=== PATIENT | female | born 1950 | race Caucasian/White ===

== ENCOUNTER 2019-03-22 08:57 | Day surgery (SDC) | payer MEDICARE, OTHER ==
[2019-03-22] MEDS ORDERED: Sodium Chloride 0.9% 10 ML Syringe FLUSH PRN (09:00)
[2019-03-22] MEDS ORDERED: Sodium Chloride 0.9% 1,000 ML IV SCH (09:00)
[2019-03-22] MEDS ORDERED: Metoclopramide 10 MG/2 ML SDV IV PRN (10:00)
[2019-03-22] MEDS ORDERED: Glycopyrrolate 0.2 MG/ML 2 ML SDV ONE (13:30)
[2019-03-22] MEDS ORDERED: Propofol 1,000 MG/100 ML SDV ONE (13:30)
[2019-03-22] MEDS ORDERED: Midazolam 1 MG/ML 2 ML SDV ONE (13:30)
[2019-03-22] MEDS ORDERED: Benzocaine/Butamben/Tetracaine Top Spray 56 GM Canister ONE (13:30)
[2019-03-22 15:55] VITALS: BP 114/62; PULSE 98
--- NOTE | 2019-03-22 19:33 | OR ---
DATE OF OPERATION: 03/22/2019 SURGEON: Bryan Mead MD PREOPERATIVE DIAGNOSIS: Surveillance colonoscopy, shortness of breath, and history of hiatal hernia. POSTOPERATIVE DIAGNOSIS: Surveillance colonoscopy, shortness of breath, and history of hiatal hernia. PROCEDURE: Colonoscopy and esophagogastroduodenoscopy. ANESTHESIA: General. ESTIMATED BLOOD LOSS: None. COMPLICATIONS: None. INDICATION FOR THE PROCEDURE: Patient is a 68-year-old female who last had a colonoscopy 5 years ago. She did have 1 or 2 polyps 10 years ago, normal colonoscopy 5 years ago. She is here today for surveillance colonoscopy. The patient also had EGD 3 years ago showing a hiatal hernia. She has been complaining of shortness of breath and cardiac workup has so far been negative. She is concerned that this may be contributing to her shortness of breath as well. DESCRIPTION OF PROCEDURE: Informed consent was obtained from the patient. The patient was taken to the operating room and placed on the table in the left lateral decubitus position. Monitored anesthesia care was administered. Esophagogastroscope then advanced through the oral cavity and directed toward the duodenum. Duodenum was reached and appeared to be normal. Gastric antrum was normal. Remainder of the gastric body was normal. Retroflexion performed showing a hiatal hernia. The scope then withdrawn within the hiatal hernia. No inflammation, but did have a hernia that measured approximately 7 cm. Scope then withdrawn throughout the esophagus, which was also otherwise unremarkable. The scope then withdrawn. We then turned our attention to the colon. Digital rectal exam performed and was normal. Colonoscope then advanced through the anus directed toward the cecum. Cecum was reached and identified by appendiceal orifice and ileocecal valve. Colonoscope then slowly withdrawn. She did have a few small diverticula in the sigmoid and descending colon, otherwise unremarkable. No polyps identified. The rectum was also unremarkable. Colonoscope then fully withdrawn. FINDINGS: 7 cm hiatal hernia and sigmoid and descending diverticula. RECOMMENDATIONS: Would recommend repeat colonoscopy in 10 years for screening purposes. She does have a decent size hiatal hernia, however, unlikely that this is affecting her shortness of breath. I would recommend a chest x-ray or CT scan just to verify no additional colon or small bowel or other organs within the chest cavity itself. CANDELARIA/STU /[id number]
== END 2019-03-22 15:57 | disposition home or self-care (01) ==
LOC: LB.SDS 08:57
PROVIDERS: ATTEND Surgery
DX: Z12.11 Encounter for screening for malignant neoplasm of colon (principal); K21.9 Gastro-esophageal reflux disease without esophagitis; K44.9 Diaphragmatic hernia without obstruction or gangrene; Z86.010 Personal history of colon polyps; K57.30 Diverticulosis of large intestine without perforation or abscess without bleeding
CPT/HCPCS: 43235; G0105; J2250; J2704; J3490; J7030; 43246; G0121

== ENCOUNTER 2023-07-25 10:52 | Emergency (ER) | payer MEDICARE ==
[2023-07-25 11:15] VITALS: BP 149/85; PULSE 96
[2023-07-25 11:34] LABS: BASOPHILS PERCENT AUTO 1.7 % (0.0-0.5); EOSINOPHILS ABSOLUTE AUTO 0.17 K/uL (0.04-0.40); HEMATOCRIT 31.7 % (37.0-47.0); HEMOGLOBIN 10.9 g/dL (11.5-16.5); LYMPHOCYTES PERCENT AUTO 20.9 % (20.0-40.0); MEAN CORPUSCULAR HEMOGLOBIN 25.5 pg (27.0-32.0); MEAN CORPUSCULAR HGB CONC 34.4 g/dL (31.0-35.0); MEAN CORPUSCULAR VOLUME 74 fL (76-96); MONOCYTES ABSOLUTE AUTO 0.51 K/uL (0.20-0.80); MONOCYTES PERCENT AUTO 8.9 % (3.0-10.0); NEUTROPHILS ABSOLUTE AUTO 3.75 K/uL (2.00-7.50); NEUTROPHILS PERCENT AUTO 65.5 % (45.0-70.0); PLATELET COUNT,PLT 395 K/uL (150-500); RED BLOOD CELL COUNT 4.27 M/uL (3.80-5.80); RED CELL DISTRIBUTION WIDTH 14.6 % (11.0-16.0); WHITE BLOOD CELL COUNT,WBC 5.7 K/uL (4.0-11.0)
[2023-07-25 11:58] LABS: A/G RATIO 1.1 (0.8-2.0); ALBUMIN 4.1 g/dL (3.4-5.0); ANION GAP 16.7 mmol/L (5.0-15.0); BILIRUBIN TOTAL 0.4 mg/dL (0.0-1.0); BUN/CREATININE RATIO 15.5 (6-25); CALCIUM 8.8 mg/dL (8.5-10.1); CARBON DIOXIDE,CO2 23.3 mmol/L (21.0-32.0); CREATININE 0.58 mg/dL (0.55-1.02); EST CRCL DRUG DOSING (CG) 71.38 mL/min; PROTEIN TOTAL,TP 7.9 g/dL (6.4-8.2)
[2023-07-25] MEDS: Dextrose 5%-0.45% NaCl 1,000 ML IV SCH (12:25)
[2023-07-25] MEDS: Ondansetron 4 MG/2 ML SDV IVPUSH ONE (12:28)
[2023-07-25] MEDS ORDERED: Dextrose 5%-0.9% NaCl 1,000 ML IV SCH (12:30)
[2023-07-25] MEDS: Ondansetron 4 MG/2 ML SDV ONE (12:47)
== END 2023-07-25 13:45 | disposition home or self-care (01) ==
LOC: LB.ED 10:52
DX: R20.2 Paresthesia of skin (principal); R53.1 Weakness; I10 Essential (primary) hypertension; K21.9 Gastro-esophageal reflux disease without esophagitis; Z88.1 Allergy status to other antibiotic agents; Z88.5 Allergy status to narcotic agent; Z88.8 Allergy status to other drugs, medicaments and biological substances; Z79.899 Other long term (current) drug therapy
CPT/HCPCS: 36415; 70450; 80053; 85025; 96361; 96374; 99284-25; J2405; J7042